=== PATIENT | male | born 1960 | race Caucasian/White ===

== ENCOUNTER 2019-08-15 15:30 | Emergency (ER) | payer BC ==
[~2019-08-15] VITALS: Ht 188 cm; Wt 113.4 kg
[2019-08-15] MEDS ORDERED: ALLOPURINOL 10100 M1 PO (15:38)
[2019-08-15 15:57] LABS: INFLUENZA A ANTIGEN Negative (Negative); INFLUENZA B ANTIGEN Negative (Negative)
[2019-08-15] MEDS ORDERED: LEVAQUIN 500 M500 MG PO (16:28)
[2019-08-15] MEDS ORDERED: VENTOLIN HFA 1818 GM INH (16:28)
[2019-08-15 16:39] VITALS: BP 136/84
== END 2019-08-15 16:42 | disposition home or self-care (01) ==
LOC: M.ERS 15:30
PROVIDERS: Family Medicine
DX: J18.9 Pneumonia, unspecified organism (principal); M10.9 Gout, unspecified